=== PATIENT | female | born 1995 | race African-American/Black ===

== ENCOUNTER 2022-02-16 14:04 | Emergency (ER) | payer MEDICAID ==
[~2022-02-16] VITALS: Ht 157.5 cm; Wt 100.0 kg
[2022-02-16 14:12] VITALS: BP 176/105
[2022-02-16] MEDS ORDERED: TETRACAINE 0.5% OPHTH DROPS 4ML BOTHEYE ONE (14:30)
[2022-02-16] MEDS ORDERED: KETO5DRO37 LEFTEYE ×2 (18:17)
[2022-02-16] MEDS ORDERED: POLY10DR LEFTEYE ×2 (18:17)
[2022-02-16] MEDS ORDERED: TIMO5DRO32 EACHEYE (18:45)
[2022-02-16] MEDS ORDERED: ACET250T3 PO (18:45)
[2022-02-16] MEDS ORDERED: ACET-2708 MT (18:45)
[2022-02-16] MEDS ORDERED: LATA2.5D14 EACHEYE (18:45)
== END 2022-02-16 18:53 | disposition home or self-care (01) ==
LOC: ER 14:31
DX: H40.211 Acute angle-closure glaucoma, right eye (principal)
CPT/HCPCS: 99281